=== PATIENT | male | born 1930 | race Caucasian/White ===

== ENCOUNTER 2016-10-21 16:50 | Inpatient (IN) | payer BC ==
--- NOTE | ~2016-10-21 | DS ---
Discharge Summary [facility] [address] [place]. [address] NAME: MARIA L WALSH JR : [birth year] STATUS : DIS IN PAT#: [id number] AGE: 86 ADM/REG DATE : 10/21/16 MR#: [id number] REPORT SERV DATE: 10/25/16 DICTATED BY: CHANELLE PUENTES II DATE: 10/24/16 REPORT STATUS : Draft TRANSCRIBED BY: MODL DATE: 10/24/16 ADMISSION DATE: 10/21/2016 DISCHARGE DATE: 10/24/2016 DISCHARGE DIAGNOSES: 1. Chronic kidney disease, stage 5 with volume overload and scrotal and lower extremity edema. 2. Acute on chronic systolic and diastolic congestive heart failure. 3. Atrial fibrillation with permanent pacemaker. 4. Hypertension. 5. Acute right wrist gout flare. CONSULTS: Dr. Ferrer with Nephrology. PROCEDURES: None. BRIEF HISTORY OF PRESENT ILLNESS: The patient is an 86-year-old male with the above history who presented to [facility] due to progressive edema, anasarca, and weakness. For detailed history and physical examination, please see Dr. Dolan's note from 10/21/2016. HOSPITAL COURSE: On admission, the patient's creatinine was noted to be 3.77, which is above his baseline of around 2.5 to 3. Nephrology was consulted and Dr. Ferrer evaluated him. He was given IV diuresis and switched back to his oral diuretic regimen when his edema had begun to improve and his creatinine has trended down with diuresis. Currently, his creatinine is down to 3.59. The patient is not a dialysis candidate and will need continued monitoring with his diuretics, but at this point his edema is improved and he is clinically stable for discharge. Also, his BNP was elevated at 1278. Otherwise, there was no evidence of any infection. His urine was normal. He was breathing well, not needing any oxygen, and otherwise in his usual state of health. He did complain of severe right wrist pain, which has been intermittently present over the last two months consistent with his history of gout. The x-ray was unremarkable and the patient was started on steroids, which he has been on in the past, which seemed to help. Currently, he had a dose of 60 mg of prednisone and Percocet and his arm is feeling much better. At this point, he is wanting to go home and his son has everything arranged for him at home with home health and assistance who will come out. The patient wants to get home as well, so he will be discharged with a steroid taper and Percocet for a week. DISCHARGE MEDICATIONS: 1. Aspirin 81 mg p.o. daily. 2. Coreg 6.25 mg p.o. daily. 3. Vitamin D3 1000 units p.o. with lunch. 4. Erythromycin ophthalmic three times daily. 5. Synthroid 125 mcg p.o. daily. 6. Pravachol 40 mg p.o. at bedtime. 7. Aldactone mg p.o. before breakfast. 8. Demadex 40 mg p.o. before breakfast. Discharge Summary [address] [address] NAME: MARIA L WALSH JR : [birth year] STATUS : DIS IN PAT#: [id number] AGE: 86 ADM/REG DATE : 10/21/16 MR#: [id number] REPORT SERV DATE: 10/25/16 DICTATED BY: CHANELLE PUENTES II DATE: 10/24/16 REPORT STATUS : Draft TRANSCRIBED BY: ROMI DATE: 10/24/16 9. Lasix 40 mg p.o. daily. 10.Tylenol p.r.n. 11.Percocet 5/325 mg p.o. q.4 hours p.r.n. pain. 12.Prednisone taper for 7 days. DISCHARGE INSTRUCTIONS: Patient will follow Dr. Figueroa in one to two weeks. DICTATED BY: MD ZOEY Canas II/ROMI Chanelle Puentes II, MD / [id number] CC: MD Fracisco Canas II, M.D.
--- NOTE | ~2016-10-21 | HP ---
History And Physical [place] [address] [place]. [address] NAME: MARIA L WALSH JR : [birth year] STATUS : [facility] [id number] AGE: 86 ADM/REG DATE : 10/21/16 MR#: [id number] REPORT SERV DATE: 10/22/16 DICTATED BY: MARILEE ROBERTS DATE: 10/21/16 REPORT STATUS : Draft TRANSCRIBED BY: MODMaryann DATE: 10/21/16 DATE OF ADMISSION: 10/21/2016 CHIEF COMPLAINT: Progressive edema with anasarca and weakness. HISTORY OF PRESENT ILLNESS: This is a very pleasant 86 years old gentleman. He has a history of chronic kidney disease stage 4, prior history of nephrotic syndrome with proteinuria around 1.17 in July 2015, hypertension status post pacemaker secondary to atrial fibrillation, recurrent pleural effusion on the right that required pleurodesis, chronic systolic diastolic congestive heart failure, hypothyroidism, and also hyperlipidemia presenting today to [facility] with a progressive edema as well as scrotal edema and some shortness of breath and volume overload. It is very important to note that he is a patient of Dr. Fracisco Figueroa, his primary care provider, Dr. Wayne Cerna, he sees warp placer, and he did have some progressive chronic kidney disease. He had some nephrotic range proteinuria but he did not have any renal biopsy managed only medically thought to be secondary to NSAIDs. Nevertheless for two or thee days, he started to develop scrotal edema which he has not had before and some shortness of breath but mostly progressive lower extremity edema to the abdomen, and some dyspnea. No PND or orthopnea. No palpitation. No chest pain, no cough, no fever. No other complaints. The patient has been evaluated in the emergency room and Hospitalist Service has been asked for admission, further evaluation, and treatment. 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 PAST SURGICAL HISTORY: Include back surgery, hernia repair, pleurodesis, right eye surgery. SOCIAL HISTORY: Denies tobacco, alcohol, or IV drugs. ALLERGIES: HE IS ALLERGIC TO PENICILLIN, SULFA, NIFEDIPINE, AND LEVAQUIN. MEDICATIONS: At home include Tylenol, aspirin, Coreg, vitamin D3, erythromycin, Lasix, Synthroid, Pravachol, Aldactone, and Demadex. REVIEW OF SYSTEMS: A 14-point review of systems has been obtained, and pertinent positive has been listed into the history of present illness. Otherwise, negative except those underlying above. FAMILY HISTORY: Significant for hemorrhagic CVA. PHYSICAL EXAMINATION: VITAL SIGNS: Currently, the patient is afebrile. Blood pressure 108/69, heart rate 80, respiratory rate 16, and saturating 97% on room air. History And Physical [address] [address] NAME: MARIA L WALSH JR : [birth year] STATUS : ADM IN [facility]#: [id number] AGE: 86 ADM/REG DATE : 10/21/16 MR#: [id number] REPORT SERV DATE: 10/22/16 DICTATED BY: MARILEE ROBERTS DATE: 10/21/16 REPORT STATUS : Draft TRANSCRIBED BY: ROMI DATE: 10/21/16 GENERAL: He is a very pleasant, but chronically ill-appearing gentleman, frail in no acute distress. He is alert and oriented x3. Nonfocal. He follows commands appropriately. HEENT: Shows pupils equal, round, reactive to light. Extraocular movement movements intact. No JVD. No lymphadenopathy. No thyromegaly appreciated. CHEST: Eval shows bilateral air entry. Decreased breath sounds bibasilarly. No wheezes, crackles, or rhonchi appreciated. CARDIOVASCULAR: Regular rate and rhythm. S1, S2 positive. No S3, no S4. No murmurs, rubs, or gallops appreciated. ABDOMEN: Soft, but positive, nontender, no guarding. No rebound. There is a scrotal edema evident, and there is abdominal wall edema in dependent position which is pitting, also as I said, some scrotal edema and thigh edema. SKIN: There are chronic dermatitis changes on the bilateral lower extremities. NEUROLOGIC: The patient is nonfocal. He follows all his commands appropriately. LABORATORY DATA: Labs from today include sodium 139, potassium 4.6, chloride 102, CO2 of 28, BUN 118, creatinine 3.77, glucose is 90. His calcium 8.5, his total protein 6.3, albumin is 3.3, globulin is 3, total bilirubin is 1.3, alkaline phosphatase 138, ALT 21, AST 21. His white count is 6.7, hemoglobin 12.1, hematocrit 37.5, platelets are 108. His UA has been negative. His EKG shows paced rhythm, ventricular paced. ASSESSMENT AND PLAN: 1. This is an 86 years old gentleman with stage 4 to 5 chronic kidney disease with volume overload and anasarca. 2. Nephrotic syndrome suspected to be secondary to NSAIDs. 3. 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 4. Chronic systolic diastolic congestive heart failure. 5. Hypertension. 6. Hypothyroidism. 7. History of recurrent pleural effusion with right pleurodesis. PLAN: 1. The patient is going to be admitted to Hospitalist Service. We are going to place him on Bumex IV. Ferrer catheter has been placed. Strict I's and O's. Strict daily weights. We check UA, urine cultures, and consult Dr. Cerna, for further recommendation. 2. History of hypertension. We will continue his home medication and provide p.r.n. hydralazine as needed. 3. Chronic systolic diastolic congestive heart failure. We are going to continue IV diuretics. We are going to check an echo and check cardiac enzymes as well. 4. Hypothyroidism. We will continue his home medications and check a TSH and a free T4. 5. Hyperlipidemia. We will continue his home medications. We are going to provide pain and nausea control as well as GI and DVT prophylaxis. I have discussed extensively with the patient and the patient's son Mr. Gio Walsh, the patient medical condition as well as our therapeutical goal. We have also discussed the patient's wishes in case his condition deteriorates, and he said he does not want any aggressive measures such as intubation, mechanical ventilation, defibrillation, History And Physical [address] [place] [address] NAME: MARIA L WALSH JR : [birth year] STATUS : ADM IN [facility]#: [id number] AGE: 86 ADM/REG DATE : 10/21/16 MR#: [id number] REPORT SERV DATE: 10/22/16 DICTATED BY: MARILEE ROBERTS DATE: 06/14/17 REPORT STATUS : Draft TRANSCRIBED BY: MODL DATE: 10/21/16 cardioversion, chest compression or medications to treat life-threatening arrhythmia or hemodynamic deterioration according to patient's prior wishes well stated. We are going to honor patient and family wishes and make him do not resuscitate. Further workup and recommendation pending above. That has been discussed extensively with the patient. All the questions have been answered in full. CF/MODL Marilee Roberts M.D. / [id number] CC: MD Fracisco Canas II, M.D.
[~2016-10-21 16:50] MED LIST: ACET500CAP PO; ALPHAGAN P0.1 % OPH; ASAB PO; ASABAYER PO; ATROPINE SUL1 % OPH; BRIMONIDINE0.2 % OPH; CALCIPOTRIEN0.005 % EX; CALCIPOTRIEN0.005 % TOP; CEFT5 PO; CLARIT10 PO; COREG12 PO; COREG6 PO; COSAMIN DS1 TAB PO; COSOPT OPH; CYCLOGYL 1% OPH; DEMA20 PO; DESITIN TOP; DURICEF PO; ERYGEL OPH; GENTEAL0.3 % OPH; GLUCCHONDR PO; HALF81 PO; ISTALOL0.5 % OP; L20 PO; L40 PO; LEVOTHYROXIN125 MCG PO; LISINOPRIL40 MG PO; LOTEMAX0.5 % OP; LUMIGAN OPH; MIRALAXPKT PO; NORCO1 TA1 PO; NORV5 PO; OMNICEF300 PO; OMNIPRED1 % OPH; PRAVAC PO; PRAVACHOL40 MG PO; PREDFORTE OPH; PRIN10 PO; PRIN20 PO; SPIRO25 PO; SYN1 PO; SYN125 PO; T PO; TEARS PLUS OP; TIMOLOL MAL0.5 % OPH; TIMOPTIC0.5 % OP; TRAVATAN OPH; TRAVATAN Z0.004 % OPH; TUMSROLL PO; ULTRAM50 PO; VIGAMOX OPH; ZESTRIL20 MG PO; ZOFRAN ODT4 MG PO; [UNRECOGNIZED DRUG - REMARK] OP
[2016-10-21 17:21] LABS: BASOPHILS 0.6 %; BASOPHILS ABSOLUTE 0.04 10/3/uL (0.0-0.16); EOSINOPHILS 5.5 %; EOSINOPHILS ABSOLUTE 0.37 10/3/uL (0.0-0.53); HEMATOCRIT 37.5 % (40.0-51.0); HEMOGLOBIN 12.1 g/dL (13.6-17.8); IMMATURE GRANULOCYTES 0.1 %; IMMATURE GRANULOCYTES ABSOLUTE 0.01 10/3/uL (0.0-0.11); LYMPHOCYTES 19.9 %; LYMPHOCYTES ABSOLUTE 1.33 10/3/uL (0.67-4.30); MANUAL DIFF NO %; MEAN CORPUS HGB CONC 32.3 g/dL (32.0-36.0); MEAN CORPUSCULAR HEMOGLOB 30.3 pg (26.0-34.0); MEAN PLATELET VOLUME 10.8 fL (9.2-13.0); MONOCYTES 7.2 %; MONOCYTES ABSOLUTE 0.48 10/3/uL (0.21-1.20); NEUTROPHILS 66.7 %; NEUTROPHILS ABSOLUTE 4.47 10/3/uL (2.02-8.40); PLATELET COUNT 108 10/3/uL (150-400); RBC DISTRIBUTION WIDTH 15.6 % (12.0-16.0); RED CELL COUNT 3.99 10/6/uL (4.7-6.1); WHITE BLOOD CELLS 6.7 10/3/uL (4.5-10.5)
[2016-10-21 17:36] LABS: A/G RATIO 1.1 (0.7-1.9); ALBUMIN 3.3 G/DL (3.5-5.0); ALKALINE PHOSPHATASE 138 U/L (45-117); BUN (BLOOD UREA NITROGEN) 118 MG/DL (6-23); CALCIUM, SERUM 8.5 MG/DL (8.5-10.4); CHLORIDE, SERUM 102 MMOL/L (96-112); CO2 (CARBON DIOXIDE) 28 MMOL/L (24-34); CREATININE 3.77 MG/DL (0.70-1.30); GFR AFRICAN AMERICAN 16 ML/MIN (>=60); GFR NON AFRICAN AMERICAN 13 ML/MIN (>=60); GLUCOSE, SERUM 90 MG/DL (60-99); POTASSIUM, SERUM 4.6 MMOL/L (3.5-5.3); SGOT(AST) 21 U/L (5-40); SGPT(ALT) 21 U/L (5-65); SODIUM, SERUM 139 MMOL/L (135-148); TOTAL BILIRUBIN 1.3 MG/DL (0-1.2); TOTAL PROTEIN 6.3 G/DL (6.0-8.5)
[2016-10-21] MEDS ORDERED: L40 PO (20:54)
[2016-10-21] MEDS ORDERED: SPIRO25 PO (20:54)
[2016-10-21] MEDS ORDERED: DEMA20 PO (20:54)
[2016-10-21] MEDS ORDERED: VITAMIN D31000 UNIT PO (20:55)
[2016-10-21] MEDS ORDERED: SYN125 PO (20:55)
[2016-10-21] MEDS ORDERED: COREG6 PO (20:55)
[2016-10-21] MEDS ORDERED: PRAVACHOL40 MG PO (20:55)
[2016-10-21] MEDS ORDERED: T PO (20:56)
[2016-10-21] MEDS ORDERED: ASAB PO (20:56)
[2016-10-21] MEDS ORDERED: ERYTHROMYCIN O3.5 G1 OPH (20:57)
[2016-10-21 21:14] LABS: ASCORBIC ACID (UR NOT ORDER) NEG (NEG); BILIRUBIN, URINE NEGATIVE (NEG); KETONE, URINE NEGATIVE (NEG); LEUKOCYTE ESTERASE(NOT OR NEG (NEG); NITRITE (URINE) NEG (NEG); WBC (NOT ORDERED) (RFLEX) < 1 (0-5)
[2016-10-22 06:58] LABS: BASOPHILS 0.4 %; BASOPHILS ABSOLUTE 0.03 10/3/uL (0.0-0.16); EOSINOPHILS 3.3 %; EOSINOPHILS ABSOLUTE 0.28 10/3/uL (0.0-0.53); HEMATOCRIT 38.4 % (40.0-51.0); HEMOGLOBIN 12.7 g/dL (13.6-17.8); IMMATURE GRANULOCYTES 0.2 %; IMMATURE GRANULOCYTES ABSOLUTE 0.02 10/3/uL (0.0-0.11); LYMPHOCYTES 13.1 %; MEAN CORPUS HGB CONC 33.1 g/dL (32.0-36.0); MEAN CORPUSCULAR HEMOGLOB 31.1 pg (26.0-34.0); MEAN CORPUSCULAR VOLUME 93.9 fL (80-100); MEAN PLATELET VOLUME 11.4 fL (9.2-13.0); MONOCYTES 4.7 %; MONOCYTES ABSOLUTE 0.39 10/3/uL (0.21-1.20); NEUTROPHILS 78.3 %; NEUTROPHILS ABSOLUTE 6.55 10/3/uL (2.02-8.40); PLATELET COUNT 105 10/3/uL (150-400); RBC DISTRIBUTION WIDTH 15.4 % (12.0-16.0); RED CELL COUNT 4.09 10/6/uL (4.7-6.1); WHITE BLOOD CELLS 8.4 10/3/uL (4.5-10.5)
[2016-10-22 07:01] LABS: MANUAL DIFF NO %
[2016-10-22 07:05] LABS: INTERNATIONAL NORMAL RATI 1.4 UNITS (-); PARTIAL THROMBO TIME 30.9 SEC (22.5-37.2); PROTIME (NOT ORD) 16.6 SEC (12.0-14.5)
[2016-10-22 07:22] LABS: B NATRIURETIC PEPTIDE (BNP) 1278.6 PG/ML (< 100.0)
[2016-10-22 07:25] LABS: BUN (BLOOD UREA NITROGEN) 126 MG/DL (6-23); CALCIUM, SERUM 8.8 MG/DL (8.5-10.4); CHLORIDE, SERUM 100 MMOL/L (96-112); CK-MB 3.2 NG/ML; CO2 (CARBON DIOXIDE) 26 MMOL/L (24-34); CPK 50 U/L (0-200); CREATININE 3.78 MG/DL (0.70-1.30); FOLATE 16.8 NG/ML (>5.2); FREE T4 0.97 NG/DL (0.76-1.46); GFR AFRICAN AMERICAN 16 ML/MIN (>=60); GFR NON AFRICAN AMERICAN 13 ML/MIN (>=60); GLUCOSE, SERUM 158 MG/DL (60-99); PHOSPHORUS, SERUM 4.8 MG/DL (2.5-4.5); POTASSIUM, SERUM 4.3 MMOL/L (3.5-5.3); SODIUM, SERUM 135 MMOL/L (135-148); TROPONIN I 0.32 NG/ML (<0.05)
[2016-10-22 08:15] LABS: CREATININE, URINE 36.1 MG/DL
[2016-10-23 06:39] LABS: ALBUMIN 3.3 G/DL (3.5-5.0); CALCIUM, SERUM 8.9 MG/DL (8.5-10.4); CHLORIDE, SERUM 101 MMOL/L (96-112); CO2 (CARBON DIOXIDE) 26 MMOL/L (24-34); CREATININE 3.64 MG/DL (0.70-1.30); GFR AFRICAN AMERICAN 16 ML/MIN (>=60); GFR NON AFRICAN AMERICAN 14 ML/MIN (>=60); PHOSPHORUS, SERUM 4.8 MG/DL (2.5-4.5); POTASSIUM, SERUM 4.3 MMOL/L (3.5-5.3); SODIUM, SERUM 139 MMOL/L (135-148)
[2016-10-23 06:41] LABS: BUN (BLOOD UREA NITROGEN) 115 MG/DL (6-23); GLUCOSE, SERUM 116 MG/DL (60-99)
[2016-10-24 02:04] LABS: CALCIUM, SERUM 8.5 MG/DL (8.5-10.4); CHLORIDE, SERUM 97 MMOL/L (96-112); CO2 (CARBON DIOXIDE) 28 MMOL/L (24-34); CREATININE 3.59 MG/DL (0.70-1.30); GFR AFRICAN AMERICAN 17 ML/MIN (>=60); GFR NON AFRICAN AMERICAN 14 ML/MIN (>=60); GLUCOSE, SERUM 100 MG/DL (60-99); POTASSIUM, SERUM 4.4 MMOL/L (3.5-5.3); SODIUM, SERUM 135 MMOL/L (135-148)
[2016-10-24 02:05] LABS: BUN (BLOOD UREA NITROGEN) 112 MG/DL (6-23)
[2016-10-24] MEDS ORDERED: PCET PO (17:46)
[2016-10-24] MEDS ORDERED: P20 (17:48)
== END 2016-10-24 18:57 | disposition home health service (06) | DRG 291 ==
LOC: ER 16:50 → 7NO 22:16
PROVIDERS: Hospitalist; Internal Medicine; Nurse Practitioner
DX: I13.2 Hypertensive heart and chronic kidney disease with heart failure and with stage 5 chronic kidney disease, or end stage renal disease (principal); I50.43 Acute on chronic combined systolic (congestive) and diastolic (congestive) heart failure; N18.5 Chronic kidney disease, stage 5; N04.9 Nephrotic syndrome with unspecified morphologic changes; M10.9 Gout, unspecified; I48.91 Unspecified atrial fibrillation; Z95.0 Presence of cardiac pacemaker; Z79.82 Long term (current) use of aspirin; E03.9 Hypothyroidism, unspecified; E78.5 Hyperlipidemia, unspecified; Z90.01 Acquired absence of eye; Z88.0 Allergy status to penicillin; Z88.2 Allergy status to sulfonamides; Z88.1 Allergy status to other antibiotic agents; Z82.3 Family history of stroke; T39.395A Adverse effect of other nonsteroidal anti-inflammatory drugs [NSAID], initial encounter
CPT/HCPCS: 73110-RT; 80048; 80053; 80069; 81001; 82550; 82553; 82570; 82607; 82746; 82962; 83036; 83690; 83735; 83880; 83935; 84100; 84300; 84439; 84443; 84484; 85025; 85610; 85730; 93005; 93306; 96374; 99284; A9270-GY